=== PATIENT | male | born 1960 | race Caucasian/White ===

== ENCOUNTER → 2022-05-22 07:43 | Outpatient (CLI) | payer OTHER, SELFPAY ==
--- NOTE | 2022-05-22 | DI.US.S_ITS ---
PROCEDURE: US EXTREMITY NONVASC LOWER LT INDICATIONS: CALF PAIN ?ACHILLES INJURY TECHNIQUE: Real-time scanning was performed of the lower extremity on the left , with image documentation. COMPARISON: None. FINDINGS: Mild soft tissue edema in the left posterior lower calf and ankle. Fluid, thickening, and superior contraction of the Achilles tendon. IMPRESSION: Fluid, thickening, and superior contraction of the Achilles tendon, suspicious for tear. Correlate with physical exam. Internal calcifications may be from prior injury. Mild soft tissue edema in the left posterior lower calf and ankle. Dictated by: Danial Varma M.D. on 05/22/2022 at 16:08 Approved by: Danial Varma M.D. on 05/22/2022 at 16:12
== END ==
PROVIDERS: PCP Family Medicine; Referring Provider Family Medicine; Visit Provider Family Medicine
DX: S86.002A Unspecified injury of left Achilles tendon, initial encounter (principal); X58.XXXA Exposure to other specified factors, initial encounter
CPT/HCPCS: 76882